=== PATIENT | male | born 1990 | race Caucasian/White ===

== ENCOUNTER 2016-12-07 20:43 | Emergency (ER) | payer MEDICAID, OTHER ==
[~2016-12-07] VITALS: Wt 82.5 kg
--- NOTE | 2016-12-07 23:32 | RADRPT ---
PROCEDURE: Portable chest x-ray. CLINICAL INDICATION: Chest pain. TECHNIQUE: Portable AP view of the chest. COMPARISON: None. FINDINGS: No pulmonary edema or conolidation is identified. The cardiac silhouette is magnified. No pleural effusion is seen. There is no pneumothorax. IMPRESSION: 1. No evidence of acute cardiopulmonary disease. RPTAT: HTAR .Babak Gunn MD, Date Time Electronically viewed and signed by .Babak Gunn MD, on 12/07/2016 23:31 .R/
[2016-12-07] MEDS ORDERED: IBUP-1542 PO (23:39)
--- NOTE | 2016-12-07 23:42 | ERD ---
ER Documentation Chief Complaint Date/Time DATE: 12/07/16 TIME: 23:40 Chief Complaint Chest wall pain wants Xray HPI Patient is an otherwise healthy 26-year-old male who presents with on and off chest pain that he has had for several weeks. No pain at this time but intermittently he will get a sharp episode of pain the last a couple seconds. Denies any change with deep inspiration or movement. No fever. No cough. No palpitations. Does not smoke or use drugs. ROS All systems reviewed and are negative except as per history of present illness. Medications Home Meds Active Scripts Ibuprofen* (Ibuprofen*) 600 Mg Tablet, 600 MG PO Q6H Y for PAIN, #30 TAB Prov:BRITNI DE LA TORRE PA-C 12/07/16 Allergies Allergies: Coded Allergies: No Known Allergy (Unverified , 12/07/16) PMhx/Soc Medical and Surgical Hx: pt denies Medical Hx, pt denies Surgical Hx Hx Miscellaneous Medical Probl: Yes (ANXIETY) Hx Alcohol Use: Yes (SOCIALLY) Hx Substance Use: Yes (MARIJUANA) Hx Tobacco Use: No Smoking Status: Never smoker FmHx Family History: No diabetes Physical Exam Vitals Vital Signs Date Time Temp Pulse Resp B/P Pulse Ox O2 Delivery O2 Flow Rate FiO2 12/07/16 21:07 97.2 72 20 136/75 100 Physical Exam General: well developed, well nourished, alert, nontoxic, no distress Head: normocephalic, atraumatic Eyes: PERRL, normal conjunctiva Neck: Supple, nontender, no lymphadenopathy, no midline tenderness Respiratory: Clear to auscaultation bilaterally, speaks in full sentences, no use of accesory muscles or labored breathing, no rales, ronchi, or wheezing Cardiovascular: RRR, No murmurs Procedures/MDM 26-year-old male presents with chest pain. Vital signs are normal and he has no cardiac past medical history and no risk factors. EKG showed no evidence of acute ischemic changes. Chest x-ray also unremarkable. This is most likely musculoskeletal versus anxiety and low suspicion for cardiac etiology. He is discharged with ibuprofen. Recommended this patient follow up with her primary care doctor within 48 hours or return to the emergency room for any worsening of symptoms. However this time I do believe there is suitable for outpatient management. I answered all their questions and they agreed with the plan and were discharged home. Departure Diagnosis: Primary Impression: Chest pain Condition: Stable Patient Instructions: Chest Pain, Uncertain Cause Additional Instructions: Call your primary care doctor TOMORROW for an appointment during the next 1-2 days.See the doctor sooner or return here if your condition worsens before your appointment time. BRITNI DE LA TORRE PA-C December 07, 2016 23:42
== END 2016-12-07 23:50 | disposition home or self-care (01) ==
LOC: FTE 20:43
DX: R07.89 Other chest pain (principal)
CPT/HCPCS: 71010

== ENCOUNTER 2017-05-24 17:07 | Emergency (ER) | payer MEDICAID, OTHER ==
[~2017-05-24] VITALS: Ht 167.6 cm; Wt 80.5 kg
[~2017-05-24 17:07] MED LIST: IBUP-1542 PO
[2017-05-24 17:08] VITALS: Ht 167.6 cm; Wt 80.5 kg
[2017-05-24] MEDS ORDERED: LIDOCAINE 1% (MDV) 20 ML INJ SC ONE (18:00)
[2017-05-24] MEDS ORDERED: AZITHROMYCIN 250 MG TAB PO ONE (18:00)
[2017-05-24] MEDS ORDERED: CEFTRIAXONE 250 MG INJ IM ONE (18:00)
[2017-05-24 18:54] LABS: URINE BLOOD (Dip) POC Negative (NEGATIVE)
[2017-05-24 19:27] VITALS: BP 134/90; RESP 20; TEMP 97.8
--- NOTE | 2017-05-26 11:13 | ERD ---
ER Documentation Chief Complaint Chief Complaint Complains of a penile discharge x 3 days HPI Patient is a 26-year-old male presenting to the emergency department with complaints of intermittent penile discharge for the past 2 days. Symptoms are worse in the morning. He has had one recent female sexual partner 1 week ago. He also reports burning on urination. He denies fevers, chills, or other symptoms currently. He has never had similar symptoms in the past. ROS All systems reviewed and are negative except as per history of present illness. Medications Home Meds Active Scripts Ibuprofen* (Ibuprofen*) 600 Mg Tablet, 600 MG PO Q6H Y for PAIN, #30 TAB Prov:BRITNI DE LA TORRE PA-C 12/07/16 Allergies Allergies: Coded Allergies: No Known Allergy (Unverified , 12/07/16) PMhx/Soc Medical and Surgical Hx: pt denies Medical Hx, pt denies Surgical Hx Hx Miscellaneous Medical Probl: Yes (ANXIETY) Hx Alcohol Use: No Hx Substance Use: Yes (marijuana) Hx Tobacco Use: No Smoking Status: Never smoker Physical Exam Vitals Vital Signs Date Time Temp Pulse Resp B/P Pulse Ox O2 Delivery O2 Flow Rate FiO2 05/24/17 19:27 97.8 20 134/90 97 05/24/17 17:08 97.0 72 20 134/90 97 Physical Exam Const: Nontoxic, well-appearing male in no acute distress. Head: Atraumatic Eyes: Normal Conjunctiva ENT: Normal External Ears, Nose and Mouth. Neck: Full range of motion..~ No meningismus. Exam: Scrotum: Normal Lymph: No inguinal lymphadenopathy Discharge: Mild white discharge noted Ext: No cyanosis, or edema Neur: Awake and alert Psych: Normal Mood and Affect Results 24 hrs Laboratory Tests Test 05/24/17 18:53 Bedside Urine pH (LAB) 6.0 Bedside Urine Protein (LAB) Negative Bedside Urine Glucose (UA) Negative Bedside Urine Ketones (LAB) Trace Bedside Urine Blood Negative Bedside Urine Nitrite (LAB) Negative Bedside Urine Leukocyte Esterase (L Negative Current Medications Medications (Trade) Dose Ordered Sig/Ethan Route PRN Reason Start Time Stop Time Status Last Admin Dose Admin Ceftriaxone Sodium (Rocephin) 250 mg ONCE ONCE IM 05/24/17 18:00 05/24/17 18:01 DC 05/24/17 18:47 Lidocaine (Xylocaine 1% (Mdv) 20 ml) 20 ml ONCE ONCE SC 05/24/17 18:00 05/24/17 18:01 DC 05/24/17 18:54 Azithromycin (Zithromax) 1,000 mg ONCE ONCE PO 05/24/17 18:00 05/24/17 18:01 DC 05/24/17 18:47 Procedures/MDM 26-year-old male presents to the emergency department complains of penile discharge. Exam did show some mild white penile discharge. With the patient's sexual history, I will treat him empirically for chlamydia and gonorrhea. Testing sent out. No evidence of urinary tract infection. The patient agreed with the discharge plan and diagnosis. Advised for close follow-up with his primary care physician. The patient may return immediately for any new or worsening symptoms. Departure Diagnosis: Primary Impression: Penile discharge Condition: Fair Patient Instructions: What Are Sexually Transmitted Diseases (STDs)? Referrals: [facility] YOU HAVE RECEIVED A MEDICAL SCREENING EXAM AND THE RESULTS INDICATE THAT YOU DO NOT HAVE A CONDITION THAT REQUIRES URGENT TREATMENT IN THE EMERGENCY DEPARTMENT. FURTHER EVALUATION AND TREATMENT OF YOUR CONDITION CAN WAIT UNTIL YOU ARE SEEN IN YOUR DOCTORS OFFICE WITHIN THE NEXT 1-2 DAYS. IT IS YOUR RESPONSIBILITY TO MAKE AN APPOINTMENT FOR FOLOW-UP CARE. IF YOU HAVE A PRIMARY DOCTOR --you should call your primary doctor and schedule an appointment IF YOU DO NOT HAVE A PRIMARY DOCTOR YOU CAN CALL OUR PHYSICIAN REFERRAL HOTLINE AT IF YOU CAN NOT AFFORD TO SEE A PHYSICIAN YOU CAN CHOSE FROM THE FOLLOWING [facility] [id number] [facility] [facility] [address] [facility] [facility] [address] [facility] [facility] [address] [facility]. [place] [address] [facility]. [facility] [address] Additional Instructions: Follow up with your PCP within the next 1-3 days for a repeat evaluation. If you require a referral to a specialist, your Primary Care Provider may be able to provide this for you. In most patient cases, a referral is not required. If you have further questions regarding this matter, please ask your Primary Care Provider. Return the the emergency department immediately if symptoms worsen or change. If you have any questions regarding medications, ask your pharmacist or us before you leave. If any adverse reactions, occur while taking your medications, discontinue the treatment and return to the emergency department immediately. If any new or worsening symptoms, uncontrolled fevers, or other unexplained symptoms occur, return to the emergency department immediately. Take your medications as directed, and complete the entire course of treatment. ML GARZA PA-C May 26, 2017 11:13
== END 2017-05-24 19:34 | disposition home or self-care (01) ==
LOC: FTE 17:07
DX: R36.9 Urethral discharge, unspecified (principal)
CPT/HCPCS: 81003; 87591; 96372; J0696; Z7502; Z7610